=== PATIENT | male | born 1990 | race Two or more races ===

== ENCOUNTER 2023-03-18 19:06 | Emergency (ER) | payer BC, OTHER ==
[~2023-03-18] VITALS: Ht 172.7 cm; Wt 96.7 kg
[2023-03-18] MEDS ORDERED: DexAMETHasone SOD PHOS 10MG/1ML VIAL INJ IM ONE (21:30)
[2023-03-18 22:20] LABS: Rapid Strep A Screen-Throat Negative
[2023-03-18 22:32] VITALS: BP 132/78; PULSE 78; RESP 18; TEMP 98.3; O2SAT 98
[2023-03-18] MEDS ORDERED: AMOX500T3 PO (23:05)
[2023-03-18] MEDS ORDERED: PROM1SOL4 PO (23:05)
== END 2023-03-18 23:30 | disposition home or self-care (01) ==
LOC: ER 19:06
DX: J02.9 Acute pharyngitis, unspecified (principal); R05.9 Cough, unspecified
CPT/HCPCS: 71046; 87070; 87880; 96372; 99284; J1100

== ENCOUNTER 2023-08-10 14:48 | Emergency (ER) | payer BC ==
[~2023-08-10] VITALS: Ht 172.7 cm; Wt 104.1 kg
[~2023-08-10 14:48] MED LIST: AMOX500T3 PO; PROM1SOL4 PO
[2023-08-10 15:52] LABS: Basophils # (auto) 0 10 ^3/uL (0-0.2); Basophils % (auto) 0.2 % (0.0-2.0); Eosinophils # (auto) 0 10 ^3/uL (0-0.8); Eosinophils % (auto) 0.3 % (0.0-7.0); Hematocrit 45.3 % (41.0-53.0); Hemoglobin 15.2 g/dL (13.5-17.5); Lymphocytes # (auto) 2.4 10 ^3/uL (0.4-5.4); Lymphocytes % (auto) 20.2 % (10.0-50.0); Mean Corpuscular Hemoglobin 31.1 pg (28.0-32.0); Mean Corpuscular Hgb Conc. 33.6 g/dL (32.0-36.0); Mean Corpuscular Volume 92.5 fL (80.0-100.0); Monocytes # (auto) 0.8 10 ^3/uL (0-1.3); Monocytes % (auto) 6.6 % (0.0-12.0); Neutrophils # (auto) 8.5 10 ^3/uL (1.6-8.6); Neutrophils % (auto) 72.7 % (37.0-80.0); Nucleated Red Blood Cells % 0.1 %; Red Cell Distribution Width 12.8 % (11.8-14.3); White Blood Cell 11.7 10^3/uL (4.4-10.8)
[2023-08-10 16:15] LABS: Alanine Aminotransferase 83 U/L (7-40); Albumin 4.7 g/dL (3.2-4.8); Alkaline Phosphatase 95 U/L (46-116); Anion Gap 5 (5-15); Aspartate Aminotransferase 34 U/L (13-40); BUN/Creatinine Ratio 17.1 (10.0-20.0); Blood Urea Nitrogen 13 mg/dL (9-23); Calcium 9.3 mg/dL (8.7-10.4); Carbon Dioxide 27 mmol/L (20-30); Chloride 105 mmol/L (98-107); Glucose 113 mg/dL (74-106); Potassium 4.2 mmol/L (3.5-5.1); Sodium 137 mmol/L (136-145)
[2023-08-10 16:16] LABS: Bilirubin, Total 0.4 mg/dL (0.2-1.0); Creatine Kinase IFCC 155 U/L (46-171)
[2023-08-10] MEDS ORDERED: IBUP-1454 PO (16:31)
[2023-08-10] MEDS ORDERED: BACIOIN15 TOP (16:31)
[2023-08-10 16:44] VITALS: BP 148/95; PULSE 100; RESP 18; TEMP 98.2; O2SAT 96
[2023-08-10] MEDS: NEOMYCIN-BACITRACIN-POLYM UNITDOSE PKG TOP OINT TOP ONE (16:50)
[2023-08-10] MEDS: ONDANSETRON ODT 4 MG TAB PO ONE (16:50)
== END 2023-08-10 16:55 | disposition home or self-care (01) ==
LOC: ER 14:48
DX: T75.4XXA Electrocution, initial encounter (principal); T23.121A Burn of first degree of single right finger (nail) except thumb, initial encounter; T22.112A Burn of first degree of left forearm, initial encounter; T31.0 Burns involving less than 10% of body surface; Z79.899 Other long term (current) drug therapy; W86.8XXA Exposure to other electric current, initial encounter; Y93.89 Activity, other specified; Y92.89 Other specified places as the place of occurrence of the external cause; Y99.8 Other external cause status
CPT/HCPCS: 16020; 36415; 71046; 80053; 82550; 84484; 85025; 93005; 99285; Q0162